=== PATIENT | male | born 1975 | race Caucasian/White ===

== ENCOUNTER → 2021-05-06 | Day surgery (SDC) | payer OTHER ==
[~2021-05-06] MED LIST: NOHOMEMEDICATIONS
--- NOTE | ~2021-05-06 | OP ---
[facility] [address] [place] [address] OPERATIVE REPORT Name: YURI GORDON Room: [facility].#: [id number] Admission: 05/06/21 Attend Phys: Dalton Sahni Discharge: Date of : 79 Report #: [id number] THIS REPORT FOR: cc: FAM - No family physician/PCP FAM - No family physician/PCP Dalton Sahni MD ~ DATE OF SURGERY: 05/06/2021 PREOPERATIVE DIAGNOSIS: Left inguinal hernia. POSTOPERATIVE DIAGNOSIS: Left inguinal hernia. OPERATION: Laparoscopic repair of left inguinal hernia with mesh. SURGEON: Dalton Sahni MD ANESTHESIA: General. ESTIMATED BLOOD LOSS: Minimal. SPECIMENS: None. DESCRIPTION OF PROCEDURE: After informed consent was obtained, the patient was brought to the operating room and placed supine. SCDs were placed and working, preoperative antibiotics were administered, general anesthesia was induced. The abdomen was prepped and draped in the usual sterile fashion. A 10 mm incision was made below the umbilicus. Fascia was incised and a trocar was placed. Pneumoperitoneum was established. Left and right lower quadrant 5 mm ports were placed. The peritoneum at the left ASIS was scored. Peritoneum was then and incised medially and reflected inferiorly. This allowed visualization of the cord structures. This allowed visualization of the pubic bone. I dissected out Ronny's ligament. I then reduced an indirect left inguinal hernia. The peritoneum was fully reduced. A large Vint 3DMax left-sided mesh was inserted. It was tacked to Ronny's ligament with 2 absorbable tacks. I then reapproximated the peritoneum with a running 2-0 V-Loc suture. This covered the mesh nicely. The area was instilled with 10 mL of 0.5% Marcaine. The ports were removed under direct vision. The fascia at the umbilicus was closed with a vqwjvn-vi-buqtu 0 Vicryl. Skin was closed with 4-0 Monocryl. Incisions were dressed with Steri-Strips. COMPLICATIONS: [place] [address] OPERATIVE REPORT Name: YURI GORDON Room: [employer]#: [id number] Admission: 05/06/21 Attend Phys: Dalton Sahni Discharge: Date of : 79 Report #: [id number] DISPOSITION: The patient was taken to recovery in satisfactory condition. By: [id number] Sanhi MD /sergio
[2021-05-06 06:45] LABS: HEMATOCRIT 42.1 % (42.0-52.0); HEMOGLOBIN 14.1 gm/dL (14.0-18.0); MCH 29.2 pg (26.0-34.0); MCHC 33.6 g/dL (28.0-37.0); MPV 7.5 fl. (7.2-11.1); RBC 4.84 mil/uL (4.50-6.00); RDW-CV 13.8 % (10.5-14.5); WBC 6.4 thou/uL (4.0-11.0)
[2021-05-06 06:49] LABS: CALCIUM 9.2 mg/dL (8.5-10.1); CREATININE 0.9 mg/dL (0.6-1.3); POTASSIUM 4.4 mmol/L (3.5-5.1)
== END | disposition home or self-care (01) ==
LOC: M.SUR 06:12
PROVIDERS: ATTEND Surgery
DX: K40.90 Unilateral inguinal hernia, without obstruction or gangrene, not specified as recurrent (principal); R10.9 Unspecified abdominal pain; Z20.822 Contact with and (suspected) exposure to COVID-19